=== PATIENT | male | born 1940 | race African-American/Black ===

== ENCOUNTER 2017-06-06 10:10 | Emergency (ER) | payer MEDICARE ==
--- NOTE | 2017-06-06 10:23 | ER Document Report ---
ED Medical Screen (RME) - General Chief Complaint: Fever Stated Complaint: CHILLS, FEVER, AND SWEATS Time Seen by Provider: 06/06/17 10:20 Information source: Patient Notes: 77-year-old male with a subjective fever and chills last night. He has taken no antipyretics and is afebrile today. He denies any headache, runny nose, congestion, sore throat, cough, abdominal pain, chest pain, dysuria, or rash. TRAVEL OUTSIDE OF THE [place] 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 Denies: Hx Open Heart Surgery Physical Exam - Vital signs Vitals: Temp Pulse Resp BP Pulse Ox 98.2 F 74 17 106/70 98 06/06/17 10:13 06/06/17 10:13 06/06/17 10:13 06/06/17 10:13 06/06/17 10:13 Course - Vital Signs Vital signs: Temp Pulse Resp BP Pulse Ox 98.2 F 74 17 106/70 98 06/06/17 10:13 06/06/17 10:13 06/06/17 10:13 06/06/17 10:13 06/06/17 10:13
--- NOTE | 2017-06-06 11:21 | RADIOLOGY REPORT (SQ) ---
EXAM DESCRIPTION: CHEST PA/LAT COMPLETED DATE/TIME: 06/06/2017 11:02 am REASON FOR STUDY: fever COMPARISON: CT angio chest 04/04/2015 Two-view chest 07/23/2016 EXAM PARAMETERS: NUMBER OF VIEWS: two views TECHNIQUE: Digital Frontal and Lateral radiographic views of the chest acquired. RADIATION DOSE: NA LIMITATIONS: none FINDINGS: LUNGS AND PLEURA: No opacities, masses or pneumothorax. No pleural effusion. MEDIASTINUM AND HILAR STRUCTURES: No masses or contour abnormalities. HEART AND VASCULAR STRUCTURES: Heart normal size. No evidence for failure. BONES: No acute findings. HARDWARE: Left-sided pacemaker. OTHER: No other significant finding. IMPRESSION: NO SIGNIFICANT RADIOGRAPHIC FINDING IN THE CHEST. TECHNICAL DOCUMENTATION: JOB ID: [id number] [employer]- All Rights Reserved
[2017-06-06] MEDS ORDERED: NORMAL SALINE 1000 ML 1,000 ML IV ONE (12:25)
[2017-06-06 12:50] LABS: ABSOLUTE LYMPHOCYTES (AUTO) 1.9 10^3/uL (0.5-4.7); ABSOLUTE MONOCYTES (AUTO) 0.8 10^3/uL (0.1-1.4); ABSOLUTE NEUT (AUTO) 3.4 10^3/uL (1.7-8.2); ANION GAP 8 (5-19); BASOPHILS % (AUTO) 0.3 % (0-2); BLOOD UREA NITROGEN 14 mg/dL (7-20); CALCIUM 8.6 mg/dL (8.4-10.2); CARBON DIOXIDE 24 mmol/L (22-30); CHLORIDE 108 mmol/L (98-107); CREATININE RESULT 0.69 mg/dL (0.52-1.25); EOSINOPHILS % (AUTO) 0.8 % (0-6); GLUCOSE 74 mg/dL (75-110); HEMATOCRIT 40.9 % (37.9-51.0); HEMOGLOBIN 13.5 g/dL (13.5-17.0); HGB HCT DIFFERENCE -0.4; LYMPHOCYTES % (AUTO) 30.5 % (13-45); MEAN CORPUSCULAR HGB CONC 33.1 g/dL (32.0-36.0); MEAN CORPUSCULAR VOLUME 97 fl (80-97); MONOCYTES % (AUTO) 13.2 % (3-13); POTASSIUM 3.9 mmol/L (3.6-5.0); RED BLOOD COUNT 4.23 10^6/uL (4.35-5.55); SEGMENTED NEUTROPHILS % (AUTO) 55.2 % (42-78); SODIUM 139.8 mmol/L (137-145); WHITE BLOOD COUNT 6.1 10^3/uL (4.0-10.5)
[2017-06-06 13:29] LABS: APPEARANCE,URINE CLEAR; BILIRUBIN,URINE NEGATIVE (NEGATIVE); GLUCOSE, URINE NEGATIVE (NEGATIVE); KETONES,URINE NEGATIVE (NEGATIVE); LEUKOCYTE ESTERASE,URINE NEGATIVE (NEGATIVE); NITRITE,URINE NEGATIVE (NEGATIVE); PROTEIN,URINE NEGATIVE (NEGATIVE); URINE SPECIFIC GRAVITY 1.024
--- NOTE | 2017-06-06 14:22 | ER Document Report ---
ED General - General Chief Complaint: Fever Stated Complaint: CHILLS, FEVER, AND SWEATS Time Seen by Provider: 06/06/17 10:20 TRAVEL OUTSIDE OF THE [place] IN LAST 30 DAYS: No - HPI Patient complains to provider of: Fever chills night sweats Notes: Patient coming in for evaluation of fever chills night sweats. Patient states ongoing for the last 24-48 hours. Patient does have a grandchild that has been sick with a fever and has been close proximity to patient otherwise states history of IV drug use no current IV drug use. Patient denies any other antibiotics denies nausea vomiting diarrhea - Related Data Allergies/Adverse Reactions: No Known Allergies Allergy (Verified 06/06/17 10:13) Past Medical History - General Information source: Patient - Social History Smoking Status: Former Smoker Chew tobacco use (# tins/day): No Frequency of alcohol use: None Drug Abuse: None Family History: Reviewed & Not Pertinent Patient has suicidal ideation: No Patient has homicidal ideation: No - Past Medical History Cardiac Medical History: Reports: Hx Hypertension Denies: Hx Heart Attack Pulmonary Medical History: Denies: Hx Asthma Neurological Medical History: Denies: Hx Cerebrovascular Accident, Hx Seizures Renal/ Medical History: Denies: Hx Peritoneal Dialysis GI Medical History: 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 Denies: Hx Open Heart Surgery - Immunizations Hx Pneumococcal Vaccination: 04/02/15 Review of Systems - Review of Systems Constitutional: Fever EENT: No symptoms reported Cardiovascular: No symptoms reported Respiratory: No symptoms reported Gastrointestinal: No symptoms reported Genitourinary: No symptoms reported Male Genitourinary: No symptoms reported Musculoskeletal: No symptoms reported Skin: No symptoms reported Hematologic/Lymphatic: No symptoms reported Neurological/Psychological: No symptoms reported -: Yes All other systems reviewed and negative Physical Exam - Vital signs Vitals: Temp Pulse Resp BP Pulse Ox 98.2 F 74 17 106/70 98 06/06/17 10:13 06/06/17 10:13 06/06/17 10:13 06/06/17 10:13 06/06/17 10:13 Interpretation: Normal - General General appearance: Appears well, Alert - HEENT Head: Normocephalic, Atraumatic Eyes: Normal Pupils: PERRL - Respiratory Respiratory status: No respiratory distress Chest status: Nontender Breath sounds: Normal Chest palpation: Normal - Cardiovascular Rhythm: Regular Heart sounds: Normal auscultation Murmur: No - Abdominal Inspection: Normal Distension: No distension Bowel sounds: Normal Tenderness: Nontender Organomegaly: No organomegaly - Back Back: Normal, Nontender - Extremities General upper extremity: Normal inspection, Nontender, Normal color, Normal ROM , Normal temperature General lower extremity: Normal inspection, Nontender, Normal color, Normal ROM , Normal temperature, Normal weight bearing. No: Sabino's sign - Neurological Neuro grossly intact: Yes Cognition: Normal Orientation: AAOx4 Ursula Coma Scale Eye Opening: Spontaneous [place] Coma Scale Verbal: Oriented [place] Coma Scale Motor: Obeys Commands Ursula Coma Scale Total: 15 Speech: Normal Motor strength normal: LUE, RUE, LLE, RLE Sensory: Normal - Psychological Associated symptoms: Normal affect, Normal mood - Skin Skin Temperature: Warm Skin Moisture: Dry Skin Color: Normal Course - Re-evaluation Re-evalutation: 06/06/17 15:11 The patient appears non-toxic and well hydrated. There are no signs of life threatening or serious infection at this time. The patient have been instructed to return if thepatient appears to be getting more seriously ill in any way. Cultures pending patient will be discharged home - Vital Signs Vital signs: Temp Pulse Resp BP Pulse Ox 97.4 F 60 16 144/74 H 98 06/06/17 14:51 06/06/17 14:51 06/06/17 14:51 06/06/17 14:51 06/06/17 14:51 - Laboratory Result Diagrams: 06/06/17 12:19 06/06/17 12:19 Laboratory results interpreted by me: 06/06/17 06/06/17 06/06/17 12:19 12:19 13:05 RBC 4.23 L Plt Count 101 L Monocytes % 13.2 H Chloride 108 H Glucose 74 L Urine Urobilinogen 4.0 H Urine Ascorbic Acid 40 H Discharge - Discharge Clinical Impression: Fever chills Condition: Good Disposition: HOME, SELF-CARE Instructions: Fever ([facility]), Acetaminophen, Ibuprofen (General) ([facility]) Additional Instructions: At this time there is no signs of any significant infection I laboratory work on urinalysis and on your chest x-ray. Fever may be due to a viral etiology. Would recommend continue take Tylenol Motrin at home. We will send your blood and urine for culture if there is any bacteria that will require antibiotics the culture results will let us know take approximate 24-36 hours for us to get preliminary results. If we do not call you that is good news. Return to the ER for any complications. Referrals: NOÉ FULLER MD [Primary Care Provider] - Follow up as needed
[2017-06-06 14:51] VITALS: BP 144/74
== END 2017-06-06 15:02 | disposition home or self-care (01) ==
LOC: ER 10:10
DX: R50.9 Fever, unspecified (principal); R61 Generalized hyperhidrosis; Z87.891 Personal history of nicotine dependence; I10 Essential (primary) hypertension; Z95.0 Presence of cardiac pacemaker
CPT/HCPCS: 99284; 96360; 36415; 87040; 87086; 85025; 80048; 81001; 71020; J7030

== ENCOUNTER → 2019-05-06 | Outpatient (CLI) | payer MEDICARE ==
--- NOTE | 2019-05-06 08:21 | RADIOLOGY REPORT (SQ) ---
EXAM DESCRIPTION: U/S ABDOMEN LIMITED W/O DOP COMPLETED DATE/TIME: 05/06/2019 8:00 am REASON FOR STUDY: CHRONIC VIRAL HEP C (B18.2) B18.2 CHRONIC VIRAL HEPATITIS C COMPARISON: 06/10/2013 TECHNIQUE: Dynamic and static grayscale images acquired of the abdomen and recorded on PACS. Additio nal selected color Doppler and spectral images recorded. LIMITATIONS: None. FINDINGS: PANCREAS: No masses. Visualized pancreatic duct normal caliber. LIVER: Mild diffuse coarsened echotexture to the liver parenchyma, may be related to the patient's h istory of liver disease. The liver measures 15.5 cm in length, normal size. LIVER VASCULATURE: Normal directional flow of the main portal vein and hepatic veins. GALLBLADDER: No stones. The gallbladder wall measures 2.1 mm, normal wall thickness. No pericholecys tic fluid. ULTRASOUND-DETECTED MCCLAIN'S SIGN: Negative. INTRAHEPATIC DUCTS AND COMMON DUCT: CBD measures 6.5 mm in diameter, upper limits of normal. The int rahepatic ducts normal caliber. No filling defects. INFERIOR VENA CAVA: Normal flow. AORTA: Mild atherosclerotic changes involving the abdominal aorta. The proximal abdominal aorta seg ment measures 3.1 cm, mid segment measures 2.7 cm and the distal segment measures 2.2 cm. RIGHT KIDNEY: The right kidney measures 10.2 cm in length, normal size. Normal echogenicity. No cristian d or suspicious masses. No hydronephrosis. No calcifications. PERITONEAL AND RIGHT PLEURAL SPACE: No ascites or effusions. OTHER: No other significant findings. IMPRESSION: 1. Mild diffuse coarsened echotexture to the liver parenchyma, may be related to the pa tient's history of liver disease. 2. Atherosclerotic changes involving the abdominal aorta. Small proximal abdominal aortic aneurysm m easures 3.1 cm in diameter. TECHNICAL DOCUMENTATION: JOB ID: [id number] [employer]- All Rights Reserved Reading location - IP/workstation name: [email or web address]
== END ==
LOC: RAD 06:47
PROVIDERS: ATTEND Internal Medicine
DX: B18.2 Chronic viral hepatitis C (principal)
CPT/HCPCS: 76705

== ENCOUNTER 2019-09-17 08:45 | Day surgery (SDC) | payer MEDICARE ==
[2019-09-17 09:19] LABS: HEMATOCRIT 35.6 % (37.9-51.0); HEMOGLOBIN 11.4 g/dL (13.5-17.0); MEAN CORPUSCULAR HEMOGLOBIN 29.9 pg (27.0-33.4); MEAN CORPUSCULAR HGB CONC 32.2 g/dL (32.0-36.0); MEAN CORPUSCULAR VOLUME 93 fl (80-97); PLATELET COUNT 117 10^3/uL (150-450); RED BLOOD COUNT 3.83 10^6/uL (4.35-5.55); RED CELL DISTRIBUTION WIDTH 15.1 % (11.5-14.0); WHITE BLOOD COUNT 4.5 10^3/uL (4.0-10.5)
[2019-09-17 09:25] LABS: INTERNATIONAL RATION (INR) 1.05; PROTHROMBIN TIME 13.8 SEC (11.4-15.4)
[2019-09-17 09:26] LABS: PARTIAL THROMBOPLASTIN TIME 32.2 SEC (23.5-35.8)
[2019-09-17 09:52] LABS: BLOOD UREA NITROGEN 14 mg/dL (7-20)
[2019-09-17] MEDS ORDERED: FENTANYL CITRATE INJ/PF 100 MCG/2 ML AMPUL ONE (10:25)
[2019-09-17] MEDS ORDERED: MIDAZOLAM 2 MG/2 ML INJ ONE (10:25)
[2019-09-17 13:58] VITALS: BP 143/79
--- NOTE | 2019-09-17 14:17 | RADIOLOGY REPORT (SQ) ---
EXAM DESCRIPTION: CT BIOPSY LIVER; CT NEEDLE PLACEMENT COMPLETED DATE/TIME: 09/17/2019 11:11 am REASON FOR STUDY: CHRONIC VIRAL HEPATITIS C; CHRONIC VIRAL HEPATITIS C, LIVER BIOPSY B18.2 CHRONIC VIRAL HEPATITIS C Z79.01 RESIDENTIAL (CURRENT) USE OF ANTICOAGULANTS COMPARISON: None. FLUORO TIME: 2.8 seconds 106 images saved to PACS. LIMITATIONS: None. PROCEDURE: The procedure, risks, benefits, and alternatives were discussed with the patient in the p reprocedural area, and all questions were answered. Informed consent was obtained verbally and in wri ting. The patient was then brought to the CT suite, positioned supine on the CT gurney, and a time-out was performed. After that, axial images of the abdomen were obtained for targeting of the right hepatic lobe. Based on review of the axial images an appropriate access site was selected on the skin. The area around selected access site was then prepped and draped 2% chlorhexidine utilizing standard sterile technique. After that, the access site was infiltrated with 1% lidocaine and an incision was made in the skin with a #11 blade. A 17 gauge coaxial needle was then advanced through the skin inci ashley and into the right hepatic lobe utilizing CT fluoroscopic guidance. After that, the inner stylet of the coaxial needle was removed and 3 18 gauge core samples were obtained - the samples were colle cted and submitted to cytopathology in formalin. Then, as coaxial needle was removed, the biopsy track was embolized with Gelfoam. After the coaxial needle was removed axial images of the abdomen were repeated and reviewed ; the images demonstrated s ubcutaneous and perihepatic hematomas. The patient tolerated the procedure well without immediate complication. At the end of the procedure the patient's condition was unchanged from the preprocedural baseline. IV conscious sedation was administered at the direction of the performing physician by a cali paredes. 1 milligrams of Versed and 50 micrograms of fentanyl. Physiologic monitoring was provided befor e, during, and after sedation. The total sedation time was 30 minutes. Documentation of [id number] time the performing proceduralist spent monitoring the patient: 15 min utes. IMPRESSION: Successful CT-guided biopsy of the liver as detailed above. COMMENT: Patient medication list reviewed:Yes- Quality ID# 130:Eligible professional attests to docu menting in the medical record they obtained, updated, or reviewed the patient's current medications. Quality ID #76: The patient was prepped and draped using maximum sterile barrier technique including cap, mask, sterile gown, sterile gloves, a large sterile sheet, hand hygiene, and 2% Chlorhexidine fo r cutaneous antisepsis. When ultrasound is used, sterile ultrasound techniques are followed requiring sterile gel and sterile probes. Quality ID 145: Final reports for procedures using fluoroscopy that document radiation exposure darius raul, or exposure time and number of fluorographic images (if radiation exposure indices are not avail able) Quality ID# 436: Final reports with documentation of one or more dose reduction techniques (e.g., Aut omated exposure control, adjustment of the mA and/or kV according to patient size, use of iterative r econstruction technique) TECHNICAL DOCUMENTATION: JOB ID: [id number] [email or web address]- All Rights Reserved rev-03/07 Reading location - IP/workstation name: [email or web address]
--- NOTE | 2019-09-17 14:17 | RADIOLOGY REPORT (SQ) ---
EXAM DESCRIPTION: CT BIOPSY LIVER; CT NEEDLE PLACEMENT COMPLETED DATE/TIME: 09/17/2019 11:11 am REASON FOR STUDY: CHRONIC VIRAL HEPATITIS C; CHRONIC VIRAL HEPATITIS C, LIVER BIOPSY B18.2 CHRONIC VIRAL HEPATITIS C Z79.01 DETENTION (CURRENT) USE OF ANTICOAGULANTS COMPARISON: None. FLUORO TIME: 2.8 seconds 106 images saved to PACS. LIMITATIONS: None. PROCEDURE: The procedure, risks, benefits, and alternatives were discussed with the patient in the p reprocedural area, and all questions were answered. Informed consent was obtained verbally and in wri ting. The patient was then brought to the CT suite, positioned supine on the CT gurney, and a time-out was performed. After that, axial images of the abdomen were obtained for targeting of the right hepatic lobe. Based on review of the axial images an appropriate access site was selected on the skin. The area around selected access site was then prepped and draped 2% chlorhexidine utilizing standard sterile technique. After that, the access site was infiltrated with 1% lidocaine and an incision was made in the skin with a #11 blade. A 17 gauge coaxial needle was then advanced through the skin inci ashley and into the right hepatic lobe utilizing CT fluoroscopic guidance. After that, the inner stylet of the coaxial needle was removed and 3 18 gauge core samples were obtained - the samples were colle cted and submitted to cytopathology in formalin. Then, as coaxial needle was removed, the biopsy track was embolized with Gelfoam. After the coaxial needle was removed axial images of the abdomen were repeated and reviewed ; the images demonstrated s ubcutaneous and perihepatic hematomas. The patient tolerated the procedure well without immediate complication. At the end of the procedure the patient's condition was unchanged from the preprocedural baseline. IV conscious sedation was administered at the direction of the performing physician by a cali paredes. 1 milligrams of Versed and 50 micrograms of fentanyl. Physiologic monitoring was provided befor e, during, and after sedation. The total sedation time was 30 minutes. Documentation of [id number]-[id number] time the performing proceduralist spent monitoring the patient: 15 min utes. IMPRESSION: Successful CT-guided biopsy of the liver as detailed above. COMMENT: Patient medication list reviewed:Yes- Quality ID# 130:Eligible professional attests to docu menting in the medical record they obtained, updated, or reviewed the patient's current medications. Quality ID #76: The patient was prepped and draped using maximum sterile barrier technique including cap, mask, sterile gown, sterile gloves, a large sterile sheet, hand hygiene, and 2% Chlorhexidine fo r cutaneous antisepsis. When ultrasound is used, sterile ultrasound techniques are followed requiring sterile gel and sterile probes. Quality ID 145: Final reports for procedures using fluoroscopy that document radiation exposure darius raul, or exposure time and number of fluorographic images (if radiation exposure indices are not avail able) Quality ID# 436: Final reports with documentation of one or more dose reduction techniques (e.g., Aut omated exposure control, adjustment of the mA and/or kV according to patient size, use of iterative r econstruction technique) TECHNICAL DOCUMENTATION: JOB ID: [id number] [employer]- All Rights Reserved rev-03/07 Reading location - IP/workstation name: [email or web address]
== END 2019-09-17 14:15 | disposition home or self-care (01) ==
LOC: RAD 08:45
PROVIDERS: ATTEND Internal Medicine Gastroenterology
DX: B18.2 Chronic viral hepatitis C (principal); Z79.01 Long term (current) use of anticoagulants; I10 Essential (primary) hypertension
CPT/HCPCS: 36415; 84520; 82565; 85027; 85610; 85730; 88305 ×2; 88313 ×2; 77012; 47000; J2250; J3010

== ENCOUNTER 2019-10-23 12:09 | Emergency (ER) | payer MEDICARE ==
--- NOTE | 2019-10-23 14:04 | ER Document Report ---
HPI - HPI Time Seen by Provider: 10/23/19 13:55 Pain Level: 3 Notes: Patient is an 79-year-old male with a history of COPD, hypertension and pacemaker placement, not on any blood thinning medications, who presents complaining of head injury status post fall in a parking lot about 3 hours ago. Patient has a mild headache with swelling to his right frontal/supraorbital area. Patient states that he did not injure any other part of his body. He is able to ambulate with aid of a single-point cane which is his usual. He has been able to eat and drink without difficulty. He is urinating normally. Denies drug allergies. He is otherwise acting behaving normally per family member. Denies any fever, neck pain, changes in vision/speech/mentation/hearing, URI, sore throat, chest pain, palpitations, syncope, cough, shortness of breath, wheeze, dyspnea, abdominal pain, nausea/vomiting/diarrhea, urinary retention, dysuria, hematuria, loss of control of bowel or bladder, numbness/tingling, saddle anesthesia, muscle paralysis/weakness, or rash. - ROS Systems Reviewed and Negative: Yes All other systems reviewed and negative - REPRODUCTIVE Reproductive: DENIES: : Past Medical History - Social History Smoking Status: Former Smoker Family History: Reviewed & Not Pertinent Patient has suicidal ideation: No Patient has homicidal ideation: No - Past Medical History Cardiac Medical History: Reports: Hx Hypertension Denies: Hx Heart Attack Pulmonary Medical History: Denies: Hx Asthma Neurological Medical History: Denies: Hx Cerebrovascular Accident, Hx Seizures Renal/ Medical History: Denies: Hx Peritoneal Dialysis GI Medical History: 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 Denies: Hx Open Heart Surgery - Immunizations Hx Pneumococcal Vaccination: 04/02/15 Vertical Provider Document - CONSTITUTIONAL Agree With Documented VS: Yes Notes: PHYSICAL EXAMINATION: accompanied by female nurse GENERAL: Well-appearing, well-nourished and in no acute distress. A&Ox4. Answe rs questions appropriately. HEAD: + swelling/tenderness rt forehead/supraorbital area. No laceration. No tran sign EYES: Pupils equal round and reactive to light, extraocular movements intact, sc estela anicteric, conjunctiva are normal. No raccoon eyes/entrapment ENT: EAC clear b/l. TM's intact b/l without erythema, fluid, or perforation. Nares patent and without discharge. oropharynx clear without exudates. No tonsilar hypertrophy or erythema. Moist mucous membranes. No sinus tenderness. No hemotympanum/CSF discharge. NECK: Normal range of motion, supple without lymphadenopathy. No rigidity. No midline tenderness. Chest: No flail chest. equal rise/fall. Non-tender LUNGS: Breath sounds clear to auscultation bilaterally and equal. No wheezes rales or rhonchi. HEART: Regular rate and rhythm without murmurs, rubs, gallops. ABDOMEN: Soft, nontender, nondistended abdomen. No guarding, no rebound. Normal bowel sounds present. No CVA tenderness bilaterally. No ecchymosis. Musculoskeletal: Ext b/l: FROM to passive/active. Strength 5+/5. No deficits noted. No bony tenderness of extremities. Back: FROM to passive/active. Strength 5+/5. No vertebral point tenderness, stepoffs, or deformities. No other bony tenderness or ecchymosis. Extremities: No cyanosis, clubbing, or edema b/l. Peripheral pulses 2+. Capillary refill less than 2 seconds. NEUROLOGICAL: NIH 0. GCS 15. Cranial nerves grossly intact. Normal speech, normal gait. Normal sensory, motor exams. Reflexes 2+ b/l. BRYAN's negative. Pronator drift negative. Heel/tucker, finger/nose wnl. PSYCH: Normal mood, normal affect. SKIN: Warm, Dry, normal turgor, no rashes or lesions noted. see above. - INFECTION CONTROL TRAVEL OUTSIDE OF THE [place] IN LAST 30 DAYS: No Course - Re-evaluation Re-evalutation: 10/23/19 15:13 Patient is an afebrile, well-hydrated, 79-year-old male who presents with a right frontal hematoma status post head injury without evidence of intracranial bleed or fracture. Vitals are acceptable without significant tachycardia, ischemia, or hypoxia. PE is otherwise unremarkable for any focal neurological deficits. Patient is nontoxic-appearing and is tolerating p.o. without difficulty. He is able to ambulate throughout the ED without any difficulties. CT scan of the head and cervical spine were otherwise acceptable. Tylenol was given p.o. today. No further work-up warranted. Low suspicion for any acute glaucoma, temporal arteritis, meningitis, intracranial hemorrhage, ischemic stroke, or fracture at this time. Patient is aware that his condition can change from initial presentation and that he needs to monitor symptoms closely for any acute changes. Recheck with your PCM in 2 to 3 days. Return to the ED with any other worsening/concerning symptoms. Patient is in agreement. - Vital Signs Vital signs: Temp Pulse Resp BP Pulse Ox 97.6 F 88 20 123/78 98 10/23/19 13:59 10/23/19 13:59 10/23/19 13:59 10/23/19 13:59 10/23/19 13:59 Discharge - Discharge Clinical Impression: Head injury Qualifiers: Encounter type: initial encounter Qualified Code(s): S09.90XA - Unspecified injury of head, initial encounter Condition: Stable Disposition: HOME, SELF-CARE Instructions: Head Injury Precautions ([facility]) Additional Instructions: Rest, Ice/cool compress Tylenol/ibuprofen as needed Light stretches daily F/u with your PCP in 2-3 days for a recheck Consider consult(s) with Neurology for ongoing/worsening symptoms Return to the ED with any worsening symptoms and/or development of fever, headache, changes in behavior/mentation/vision/speech, chest pain, palpitations, syncope, shortness of breath, trouble breathing, abdominal pain, n/v/d, blood in stool/urine, loss of control of bowel/bladder, urinary retention, muscle weakness/paralysis, saddle anesthesia, numbness/tingling, or other worsening symptoms that are concerning to you. Referrals: LUKASZ JOHNSON MD [Primary Care Provider] - 10/25/19
--- NOTE | 2019-10-23 15:03 | RADIOLOGY REPORT (SQ) ---
EXAM DESCRIPTION: CT HEAD WITHOUT COMPLETED DATE/TIME: 10/23/2019 2:41 pm REASON FOR STUDY: fall, injury COMPARISON: None. TECHNIQUE: Axial images acquired through the brain without intravenous contrast. Images reviewed wi th bone, brain and subdural windows. Additional sagittal and coronal reconstructions were generated. Images stored on PACS. All CT scanners at this facility use dose modulation, iterative reconstruction, and/or weight based d osing when appropriate to reduce radiation dose to as low as reasonably achievable (ALARA). [facility]: Dose Right [facility]: CareDose [facility]: Dose Right [facility]: Teradose 4D [facility]: [employer] RADIATION DOSE: CT Rad equipment meets quality standard of care and radiation dose reduction techniq ues were employed. CTDIvol: 53.2 mGy. DLP: 1070 mGy-cm. mGy. LIMITATIONS: None. FINDINGS: There is diffuse age-appropriate cerebral and cerebellar volume loss. The caliber of the ventricles is concordant with the degree of sulcation. There is no acute intracranial hemorrhage, va scular territorial infarct, extra-axial fluid collection, mass effect or midline shift. There is no effacement of the cerebral sulci or basal subarachnoid cisterns. The fish-white matter differentiati on is preserved. There is an right frontal extracranial hematoma. There is no associated calvarial fracture. 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 The orbits are intact. There is no paranasal sinus air-fluid level. IMPRESSION: Right frontal extracranial hematoma without an associated calvarial fracture or acute in tracranial abnormality. EVIDENCE OF ACUTE STROKE: NO. COMMENT: Quality ID # [id number]: Final reports with documentation of one or more dose reduction techniques (e.g., Automated exposure control, adjustment of the mA and/or kV according to patient size, use of iterative reconstruction technique) TECHNICAL DOCUMENTATION: JOB ID: [id number] [employer]- All Rights Reserved Reading location - IP/workstation name: [email or web address]
--- NOTE | 2019-10-23 15:09 | RADIOLOGY REPORT (SQ) ---
EXAM DESCRIPTION: CT CERVICAL SPINE WITHOUT COMPLETED DATE/TIME: 10/23/2019 2:41 pm REASON FOR STUDY: fall, injury COMPARISON: None. TECHNIQUE: Axial images acquired through the cervical spine without intravenous contrast. Images re viewed with lung, soft tissue and bone windows. Reconstructed coronal and sagittal MPR images review ed. Images stored on PACS. All CT scanners at this facility use dose modulation, iterative reconstruction, and/or weight based d osing when appropriate to reduce radiation dose to as low as reasonably achievable (ALARA). [facility]: Dose Right [facility]: CareDose [facility]: Dose Right [facility]: Teradose 4D [facility]: [employer] RADIATION DOSE: CT Rad equipment meets quality standard of care and radiation dose reduction techniq ues were employed. CTDIvol: 20.6 mGy. DLP: 402 mGy-cm. mGy. LIMITATIONS: None. FINDINGS: ALIGNMENT: There is straightening of the normal lordotic curvature of the cervical spine w ith grade 1 anterolisthesis of C4 relative to C5. There is no craniocervical or atlantoaxial dissoci ation. MINERALIZATION: Normal. VERTEBRAL BODIES: The cervical vertebral body heights are preserved. There is no fracture. DISCS: The C5-C6 intervertebral disc space is narrowed and there is associated endplate sclerosis, atkinson bchondral cyst formation and endplate osteophyte formation. FACETS, LATERAL MASSES, POSTERIOR ELEMENTS: No fracture or malalignment. At C2-C3, C3-C4 and C5-C6 o n the left and C4-C5 and C5-C6 on the right there is osteophytic foraminal stenosis due to a combinat ion of facet joint arthropathy and uncovertebral hypertrophy. HARDWARE: None in the spine. VISUALIZED RIBS: No fractures. LUNG APICES AND SOFT TISSUES: There is debris within the esophagus above the thoracic inlet. There i s a variant azygos fissure. OTHER: No other finding. IMPRESSION: No acute fracture or malalignment of the cervical spine. TECHNICAL DOCUMENTATION: JOB ID: [id number] Quality ID # [id number]: Final reports with documentation of one or more dose reduction techniques (e.g., Au tomated exposure control, adjustment of the mA and/or kV according to patient size, use of iterative reconstruction technique) 2010 [employer] All Rights Reserved Reading location - IP/workstation name: [email or web address]
[2019-10-23 15:31] VITALS: BP 124/77
--- NOTE | 2019-10-24 00:03 | EKG REPORT ---
SEVERITY:- ABNORMAL ECG - SINUS RHYTHM LEFT BUNDLE BRANCH BLOCK : Confirmed by: Flor Watkins MD 24-Oct-2019 00:03:03
== END 2019-10-23 15:30 | disposition home or self-care (01) ==
LOC: ER 12:09
DX: S00.83XA Contusion of other part of head, initial encounter (principal); R51 Headache; W19.XXXA Unspecified fall, initial encounter; Y92.481 Parking lot as the place of occurrence of the external cause; I10 Essential (primary) hypertension; J44.9 Chronic obstructive pulmonary disease, unspecified; Z95.0 Presence of cardiac pacemaker; Z87.891 Personal history of nicotine dependence
CPT/HCPCS: 70450; 72125; 93005; 93010; 99284